=== PATIENT | female | born 1990 | race Caucasian/White ===

== ENCOUNTER 2021-12-22 20:48 | Emergency (ER) | payer BC, SELFPAY ==
[2021-12-22 20:56] VITALS: BP 153/104; PULSE 88; RESP 18; TEMP 36.8; O2SAT 100
--- NOTE | 2021-12-22 21:26 | ED.GENADULT ---
HPI - General Adult General Chief complaint: Unspecified Stated complaint: rectal pain Time Seen by Provider: 12/22/21 21:03 Source: patient Mode of arrival: ambulatory Limitations: no limitations History of Present Illness HPI narrative: Patient presents with bleeding hemorrhoids over the last [address] hours. Patient drove from [place] and was in a sitting position almost 12 hours in the room. History of hemorrhoids. Patient denies other symptoms. Related Data Allergies Allergy/AdvReac Type Severity Reaction Status Date / Time No Known Allergies Allergy Verified 12/22/21 21:00 Review of Systems Review of Systems: CONSTITUTIONAL: Denies fever, chills, or sweats. EYES: Denies visual changes, redness, or discharge. ENT: Denies rhinorrhea, congestion, sore throat, or otalgia. CARDIOVASCULAR: Denies chest pain, palpitations, or edema. RESPIRATORY: Denies cough or dyspnea. GASTROINTESTINAL: Denies abdominal pain, nausea, vomiting, or diarrhea. GENITOURINARY: Denies dysuria or hematuria. SKIN: Denies rash or itching. MUSCULOSKELETAL: Denies back pain, joint pain, or myalgia. NEUROLOGIC: Denies headache, numbness, or weakness. PSYCHIATRIC: Denies anxiety or depression. [facility] Family History Family History Father Family history of diabetes mellitus in first degree relative Social History Social History Smoking status: Never smoker Alcohol intake: never Exam Narrative: General appearance: Well-developed, well-nourished Skin: Normal color Head: Normocephalic, nontraumatic Eyes: Clear conjunctiva ENT: Oropharynx normal, ears normal, nose normal Neck: Supple, nontender Chest and respiratory: Airway patent, no respiratory distress, no accessory muscle use Heart: Regular rate/rhythm Abdomen: Soft, nontender, no organomegaly, quiet bowel sounds, rectal exam showed a thrombosed hemorrhoids with 4 x 4 millimeter opening showing a blood clot inside which is oozing blood. Vascular: Normal peripheral pulses, normal capillary refill. Musculoskeletal: Normal range of motion, nontender back Neurologic: Alert and oriented ?3, [employer] is normal as tested, no gross motor deficit Course Vital Signs Vital signs: Vital Signs Temperature 36.8 C 12/22/21 20:56 Pulse Rate 88 12/22/21 20:56 Respiratory Rate 18 12/22/21 20:56 Blood Pressure 153/104 H 12/22/21 20:56 Pulse Oximetry 100 12/22/21 20:56 Temperature 36.8 C 12/22/21 20:56 Pulse Rate 88 12/22/21 20:56 Respiratory Rate 18 12/22/21 20:56 Blood Pressure 153/104 H 12/22/21 20:56 Pulse Oximetry 100 12/22/21 20:56 Procedures Other Procedure Procedure 1: Other Procedure: Thrombosed hemorrhoids, lidocaine with epi 1%, 3 mm, scalpel #11, the hemorrhoids already was opened I added another 2 mm incision in both ends which allowed me to expel the blood clot out. Bleeding stopped, patient tolerated the procedure well Medical Decision Making Vital Signs Vital Signs: Vital Signs Temperature 36.8 C 12/22/21 20:56 Pulse Rate 88 12/22/21 20:56 Respiratory Rate 18 12/22/21 20:56 Blood Pressure 153/104 H 12/22/21 20:56 Pulse Oximetry 100 12/22/21 20:56 Temperature 36.8 C 12/22/21 20:56 Pulse Rate 88 12/22/21 20:56 Respiratory Rate 18 12/22/21 20:56 Blood Pressure 153/104 H 12/22/21 20:56 Pulse Oximetry 100 12/22/21 20:56 Critical Care Time Critical Care Time Critical Care Time: Yes Total Critical Care Time: 20 Discharge Plan Discharge Clinical Impression: External hemorrhoid, thrombosed Patient Disposition: Home, Self-Care
== END 2021-12-22 21:50 | disposition home or self-care (01) ==
LOC: ANHED 21:43
PROVIDERS: Emergency Provider Emergency Medicine
DX: K64.5 Perianal venous thrombosis (principal)
CPT/HCPCS: 46083; 99283